=== PATIENT | female | born 1985 | race Caucasian/White ===

== ENCOUNTER → 2016-11-11 | Outpatient (CLI) | payer OTHER ==
[~2016-11-11] MED LIST: PRENTAB26 PO
[2016-11-11 11:50] LABS: URINE APPEARANCE CLEAR (CLEAR); URINE BILIRUBIN NEG (NEG); URINE COLOR YELLOW; URINE EPITHELIAL CELL AUTO 20-30 /lpf (0-5); URINE NITRITE NEG (NEG); URINE PH 7.5 (4.5-7.5); URINE SPECIFIC GRAVITY 1.007 (1.000-1.030); UROBILINOGEN NEG (NEG)
[2016-11-11 11:56] LABS: MANUAL MICROSCOPIC REQUIRED? NO; REVIEW REQ? NO
== END | disposition home or self-care (01) ==
LOC: C.LABSPEC 11:21
PROVIDERS: ATTEND Obstetrics & Gynecology
DX: Z34.90 Encounter for supervision of normal pregnancy, unspecified, unspecified trimester (principal)

== ENCOUNTER → 2016-11-17 | Outpatient (CLI) | payer OTHER ==
[2016-11-17 11:14] LABS: BASO % 0.3 %; BASO ABS # 0.02 K/uL (0-0.2); COMPLETE YES; EOS % 0.6 %; HEMATOCRIT 37.5 % (37-47); IG% 0.3 %; LYMPH % 22.7 %; LYMPH ABS # 1.41 K/uL (1.2-3.4); MEAN CELL VOLUME 90.8 fL (80-100); MEAN CORPUSCULAR HGB CONC 35.2 g/dl (32-36); MEAN PLATELET VOLUME 11.1 fL (7.4-10.4); MONO % 4.5 %; NEUT % 71.6 %; PLATELET COUNT 183 K/uL (130-400); RED BLOOD COUNT 4.13 M/uL (4.2-5.4); WHITE BLOOD COUNT 6.22 K/uL (4.8-10.8)
[2016-11-18 21:15] LABS: CHLAMYDIA TRACH RNA*** NOT DETECTED (NOT DETECTED); GC (NEIS GONORRHOEAE)RNA** NOT DETECTED (NOT DETECTED)
== END | disposition home or self-care (01) ==
LOC: C.LAB1850 09:46
PROVIDERS: ATTEND Obstetrics & Gynecology
DX: Z34.90 Encounter for supervision of normal pregnancy, unspecified, unspecified trimester (principal)

== ENCOUNTER → 2017-01-08 | Outpatient (CLI) | payer OTHER ==
[~2017-01-08] MED LIST changes: +RANITAB6 PO
[2017-01-08 14:38] LABS: GTGD 50 Grams
[2017-01-11 16:01] LABS: AFP CONCENTRATION 49.1 NG/ML; AFP MULTIPLE OF MEDIAN 1.69; AFPTS GESTATIONAL AGE 16.3 WEEKS; AFPTS INSULIN DEP DIABETIC? NO; AFPTS MATERNAL WT 188 LBS; ALPHA-FETOPROTEIN RACE CAUCASIAN=W; ESTRIOL MULTIPLE OF MEDIAN 1.16; HISTORY OF NTD NO; INHIBIN A 139 PG/ML; INHIBIN A MOM 0.92; REPEAT SAMPLE? NO; hCG MULTIPLE OF MEDIAN 1.79
== END | disposition home or self-care (01) ==
LOC: C.LAB1850 11:04
PROVIDERS: ATTEND Obstetrics & Gynecology
DX: Z34.82 Encounter for supervision of other normal pregnancy, second trimester (principal)

== ENCOUNTER → 2017-03-30 | Outpatient (CLI) | payer OTHER ==
[~2017-03-30] MED LIST changes: -RANITAB6 PO
[2017-03-30 12:19] LABS: HEMATOCRIT 33.8 % (37-47)
[2017-03-30 12:45] LABS: GTGD 50 Grams
[2017-03-30 12:55] LABS: URINE APPEARANCE CLEAR (CLEAR); URINE BILIRUBIN NEG (NEG); URINE COLOR YELLOW; URINE EPITHELIAL CELL AUTO >30 /lpf (0-5); URINE NITRITE NEG (NEG); URINE PH 7.5 (4.5-7.5); URINE SPECIFIC GRAVITY 1.013 (1.000-1.030); UROBILINOGEN NEG (NEG)
[2017-03-30 13:01] LABS: MANUAL MICROSCOPIC REQUIRED? NO; REVIEW REQ? NO
== END | disposition home or self-care (01) ==
LOC: C.LAB1850 09:29
PROVIDERS: ATTEND Obstetrics & Gynecology
DX: Z34.82 Encounter for supervision of other normal pregnancy, second trimester (principal)

== ENCOUNTER → 2017-04-10 | Outpatient (CLI) | payer OTHER | END | disposition home or self-care (01) | LOC: C.LAB 08:05 | PROVIDERS: ATTEND Obstetrics & Gynecology | DX: O28.9 Unspecified abnormal findings on antenatal screening of mother (principal); Z3A.00 Weeks of gestation of pregnancy not specified ==

== ENCOUNTER → 2017-05-26 | Outpatient (CLI) | payer OTHER | END | disposition home or self-care (01) | LOC: C.LABSPEC 17:48 | PROVIDERS: ATTEND Obstetrics & Gynecology | DX: Z34.83 Encounter for supervision of other normal pregnancy, third trimester (principal) ==

== ENCOUNTER 2017-06-17 17:27 | Inpatient (IN) | payer OTHER ==
[~2017-06-17] VITALS: Ht 170.2 cm; Wt 187.0 kg
[2017-06-17] MEDS ORDERED: LACTATED RINGER'S 1000ML 1,000 ML IV PRN (18:15)
[2017-06-17] MEDS ORDERED: OXYTOCIN 30 UNITS/500ML NSS IV PRN ×2 (18:15→23:45)
[2017-06-17] MEDS ORDERED: LACTATED RINGER'S 1000ML 500 ML IV PRN ×2 (18:15→21:14)
[2017-06-17] MEDS ORDERED: PENICILLIN G POTASSIUM IV 3 MU in DEXTROSE 5% 100ML 100 ML IV PRN (18:15)
[2017-06-17] MEDS ORDERED: PENICILLIN G POTASSIUM IV 6 MU in DEXTROSE 5% 250ML 250 ML IV ONE (18:30)
[2017-06-17] MEDS: LACTATED RINGER'S 1000ML 1,000 ML IV SCH ×2 (18:35→20:32)
[2017-06-17 19:13] LABS: HEMATOCRIT 34.6 % (37-47); MEAN CELL VOLUME 95.6 fL (80-100); MEAN CORPUSCULAR HGB CONC 35.5 g/dl (32-36); MEAN PLATELET VOLUME 12.6 fL (7.4-10.4); PLATELET COUNT 128 K/uL (130-400); PLT ESTIMATE DECREASED; RED BLOOD COUNT 3.62 M/uL (4.2-5.4); WHITE BLOOD COUNT 11.06 K/uL (4.8-10.8)
[2017-06-17 19:24] VITALS: Ht 170.2 cm; Wt 187.0 kg
[2017-06-17] MEDS ORDERED: RANITIDINE HCL 150 MG TAB PO PRN (19:30)
[2017-06-17] MEDS ORDERED: CALCIUM CARBONATE 500 MG CHEWABLE PO PRN (19:30)
[2017-06-17] MEDS ORDERED: BUPIVACAINE 0.25% 30 ML VIAL ONE (19:37)
[2017-06-17] MEDS ORDERED: FENTANYL 2MCG/ML ROPIV 1.25MG/ML 100ML BAG EPI ONE (19:37)
[2017-06-17] MEDS ORDERED: EpHEDrine SULFATE INJ 50 MG/ML AMP ONE (19:37)
[2017-06-17] MEDS ORDERED: FENTANYL CITRATE INJ 50 MCG/1 ML 2 ML VIAL ONE (19:38)
[2017-06-17] MEDS ORDERED: RANITAB6 PO (21:07)
[2017-06-17] MEDS ORDERED: NALOXONE HCL INJ 1 MG in SODIUM CHLORIDE 0.9% 1000ML 1,000 ML IV PRN (21:14)
[2017-06-17] MEDS ORDERED: EpHEDrine SULFATE INJ 50 MG/ML AMP IV PRN (21:15)
[2017-06-17] MEDS ORDERED: NALBUPHINE HCL INJ 10 MG/ML AMP IV PRN (21:15)
[2017-06-17] MEDS ORDERED: FENTANYL 2MCG/ML ROPIV 1.25MG/ML 100ML BAG EPI PRN (21:15)
[2017-06-17] MEDS ORDERED: DiphenhydrAMINE HCL 50 MG/ML VIAL IV PRN (21:15)
[2017-06-17] MEDS ORDERED: ONDANSETRON INJ 2 MG/ML 2 ML VIAL IV PRN (21:15)
[2017-06-17] MEDS ORDERED: NALOXONE HCL INJ 0.4 MG/1 ML VIAL/CARP IV PRN (21:15)
[2017-06-17] MEDS ORDERED: LACTATED RINGER'S 1000ML 1,000 ML IV SCH (23:34)
[2017-06-17] MEDS ORDERED: HYDROCORTISONE ACETATE 25 MG SUPP PR PRN (23:45)
[2017-06-17] MEDS ORDERED: LANOLIN OINT EXT PRN ×2 (23:45)
[2017-06-17] MEDS ORDERED: SUPERCREAM 0.870 % 15GM JAR EXT PRN (23:45)
[2017-06-17] MEDS ORDERED: BENZOCAINE 20% AER SPR 82.5 GM CAN EXT PRN (23:45)
[2017-06-17] MEDS ORDERED: DIPHTHERIA/TETANUS/PERTUSSIS 0.5 ML SYR/VIAL IM. ONE (23:45)
[2017-06-17] MEDS ORDERED: OXYCODONE/ACETAMINOPHEN 5-325 TAB PO PRN (23:45)
[2017-06-17] MEDS ORDERED: ACETAMINOPHEN 325 MG TAB PO PRN (23:45)
--- NOTE | 2017-06-18 00:17 | DELIVERY SUMMARY ---
DATE OF OPERATION: 06/17/2017 PREOPERATIVE DIAGNOSES: 1. [place]iken intrauterine at term. 2. Onset of labor. 3. Group B strep positive. POSTOPERATIVE DIAGNOSES: 1. [place]iken intrauterine at term. 2. Onset of labor. 3. Group B strep positive. 4. heart tones category 2 throughout much of her labor. PROCEDURE: Spontaneous vaginal delivery and repair of third-degree laceration. SURGEON: Harriett Maxwell MD. CONVEYOR FEEDER OFFBEARER: None. ESTIMATED BLOOD LOSS: 450. DISPOSITION: Stable in labor and delivery. DESCRIPTION OF PROCEDURE: Kyung is a 32-year-old para 1 who presented with a term . She was managed with an epidural for pain as well as artificial rupture of membranes for augmentation. She reached complete dilation and was coached through her second stage of labor. Of note, she was group B step positive and did get treated with penicillin throughout her labor. There was never a maternal fever, however, there was intermittent tachycardia with late decelerations. The patient pushed very well during her second stage and very rapidly brought the head of the baby to a very sudden delivery. The infant delivered with both of its hands alongside both of its cheeks and the umbilical cord actually grasped in the right hand. The head, hands, shoulders and upper arms delivered essentially all within the same moment. The reminder of the 's body delivered with no further maternal pushing efforts and was guided up on to the maternal abdomen where the cord was doubly clamped and cut. Very gentle traction was applied to the umbilical cord which immediately avulsed. The cervix, vagina and perineum where examined and found to have a full third-degree laceration including a complete separation of the anal sphincter. However, there was no rectal mucosal damage on a rectal exam. Once fresh gloves had been changed, repair proceeded by using 4 [id number] Vicryl 0 sutures to reapproximate the ends of the external anal sphincter. Gentle traction on the sutures was applied with a finger tip in the anal verge in order to ensure that traction was indeed being applied circumferentially indicating complete repair of the muscle. This was indeed found to be the case and once again gloves were changed. Repair then proceeded with a 2-0 Vicryl suture to close the posterior vagina, perineum and rebuild the perineal body in the usual manner. The patient and FOB were advised at that time of the third-degree laceration and of appropriate postop care including stool softeners and the avoidance of constipation. The fundus was firm, lochia was minimal and mom and baby were in good condition having tolerated delivery well at the time of this dictation. I attest to the content of the Intraoperative Record and any orders documented therein. Any exception s are noted below.
--- NOTE | 2017-06-18 00:18 | Anesthesia Procedure Note ---
Anesthesia Epidural Removal Nt Date & Time Jun 18, 2017 at 00:18 Vital Signs Pain Intensity: 7.0 Notes Mental Status: alert / awake / arousable, participated in evaluation Nausea / Vomiting: adequately controlled Pain: adequately controlled Airway Patency, RR, SpO2: stable & adequate BP & HR: stable & adequate Hydration State: stable & adequate Neuraxial Anesthesia: was administered, sensory block is resolving Anesthetic Complications: no major complications apparent, pt satisfied with anesthetic care Epidural: removed without complications, with tip intact
[2017-06-18] MEDS: IBUPROFEN 600 MG TAB PO PRN ×5 (01:47→20:06)
[2017-06-18 02:05] VITALS: BP 131/84; PULSE 101; TEMP 37.3; O2SAT 96
[2017-06-18] MEDS ORDERED: LIDOCAINE HCL 2% JELLY 30 ML TUBE EXT ONE (04:52)
[2017-06-18 06:36] LABS: HEMATOCRIT 27.5 % (37-47)
--- NOTE | 2017-06-18 06:57 | Progress Note ---
Subjective Jun 18, 2017. Subjective conversation w/ patient, physical exam, chart review, lab review Ambulation: limited ambulation (not out of bed yet) Voiding: requires PRN straight cath (early this am. no void yet) Passing Gas: No Diet Tolerance: Clear Liquids Lochia: Moderate Feeding Type: Bottle Feeding (wants to try breast feeding today) Pain: Says has pain/discomfort around sutures Comment: Found pt resting comfortably, says is doing well in this immediate post- period. Most discomfort around sutures, improved with PO meds. Denies any particular acute concerns. Review of Systems Constitutional: No fever, No chills Respiratory: No cough, No shortness of breath Cardiac: + edema, No chest pain Abdomen: No nausea, No vomiting, No diarrhea Female : No dysuria Objective Vital Signs Date Time Temp Pulse Resp B/P (MAP) Pulse Ox O2 Delivery O2 Flow Rate FiO2 06/18/17 02:05 Room Air 06/18/17 02:05 37.3 101 20 131/84 (100) 96 Room Air Physical Exam General Appearance: WELL-APPEARING, WD/WN, NO APPARENT DISTRESS Respiratory/Chest: lungs clear, normal breath sounds, no respiratory distress Cardiovascular: regular rate, rhythm, no murmur Abdomen: normal bowel sounds, non tender, soft Fundus: Firm, Tender (minimally), Relation to Umbilicus (at umbilicus) Extremities: normal range of motion, no calf tenderness, + pedal edema (2 plus bilaterally) Laboratory Results Last 24 Hours Test 06/17/17 18:25 06/18/17 06:06 White Blood Count 11.06 K/uL Red Blood Count 3.62 M/uL Hemoglobin 12.3 g/dL 9.7 g/dL Hematocrit 34.6 % 27.5 % Mean Corpuscular Volume 95.6 fL Mean Corpuscular Hemoglobin 34.0 pg Mean Corpuscular Hemoglobin Concent 35.5 g/dl RDW Standard Deviation 44.9 fL RDW Coefficient of Variation 12.9 % Platelet Count 128 K/uL Mean Platelet Volume 12.6 fL Platelet Estimate DECREASED Assessment and Plan Post- Day#: 1 Continue Routine Care: 32F s/p , now PPD #1 (delivered near midnight 19Oct). - Blood type A positive. GBS positive, s/p antibiotics pre-delivery. Rubella immune. - Vital signs reviewed and stable. - Pain controlled with tylenol, motrin, percocet. - Bilateral, symmetrical leg swelling but no tenderness on calf palpation. Encourage ambulation starting this AM. - Encourage breast feeding today. - Hemoglobin pre-delivery 12.3, post-delivery 9.7. Bleeding remains stable/ slowing. Continue to monitor clinically. - Continue routine post-vaginal delivery care. - Pt agreed with above plan, all current questions answered. Inderjit Betancur MD, PGY1 Outside Barrel Lathe Operator Physician Supervision Note: I interviewed and examined the patient. Discussed with Dr. Betancur and agree with findings and plan as documented in the note. Any exceptions or clarifications are listed here: [None] Documented By: Harriett Maxwell Resident Tracking Resident Involvement: Resident Care Provided Care Provided: OB Delivery (OB rounds)
[2017-06-18] MEDS: DOCUSATE SODIUM 100 MG CAP PO SCH ×2 (07:46→20:05)
[2017-06-18] MEDS: PRENATAL VITAMIN TAB PO SCH (07:46)
[2017-06-18 07:50] VITALS: BP 131/84; PULSE 88; TEMP 36.7
[2017-06-18 11:40] VITALS: BP 126/85; PULSE 85; TEMP 36.7
[2017-06-18 16:10] VITALS: BP 120/85; PULSE 97; TEMP 37; O2SAT 97
[2017-06-18 20:00] VITALS: BP 115/81; PULSE 102; TEMP 36.7; O2SAT 97
--- NOTE | 2017-06-18 22:09 | Discharge Instructions ---
Discharge Instructions Date of Service Jun 18, 2017. Admission Reason for Admission: Normal Labor And Delivery Discharge Discharge Diagnosis / Problem: s/p vaginal delivery Discharge Goals Goal(s): Routine recovery after delivery Medications Continue Dispensed Medications: supercream, dermaplast, tucks, lansinoh Activity Recommendations Activity Limitations: per Instructions/Follow-up section . Instructions / Follow-Up Instructions / Follow-Up ACTIVITY RECOMMENDATIONS: * Gradual return to full activity over the next 2-3 weeks. * No lifting - nothing heavier than baby over the next 2-3 weeks. * Do not engage in vigorous exercise, sexual activity or sports until cleared by your physician. * Do not drive or operate any motorized equipment until cleared by your physician. * You may shower/bathe daily. MEDICATIONS: For discomfort or pain, you may use Acetaminophen (Tylenol), Ibuprofen (Advil), or Naproxen (Aleve) following the package directions. For constipation you may use Colace following the package directions. BREAST CARE: If you are not breast feeding: * Wear a supportive bra 24 hours a day for one to two weeks. * Avoid stimulating your breasts and nipples as much as possible during the first few weeks after delivery. * When taking a shower, have the warm water hit your back, not breasts. * When your breasts feel full, apply ice packs. Usually three to four times a day helps ease the discomfort. * Take a mild pain medication (Tylenol / Motrin) when you are uncomfortable. If breast feeding: * Use breast milk to lubricate nipples. Lansinoh cream may be used for sore nipples. You do not need to remove cream prior to breast feeding. If using a different brand of cream, check the label for directions regarding removal of cream prior to nursing. * Wear a supportive bra. * If having problems with breasts or breast feeding, call a storage consultant or your health care provider. EPISIOTOMY CARE: After delivery, if you have an episiotomy (stitches), the following steps will ease discomfort and aid healing. * For the first 24 hours after delivery, place ice packs next to your episiotomy to help reduce swelling. * After the first 24 hour-period, sitz baths, either portable or in the tub, are suggested. A shower with a shower arm sprayed over the episiotomy may be comforting. * Cass care should be done after each voiding and bowel movement. Squirt warm water from a plastic bottle over the perineum (region of the body between the anus and urinary opening) and pat dry. * Use Dermoplast to ease discomfort. Shake container. [place] directly over the episiotomy. Place a Tucks on a clean sanitary pad next to your episiotomy. SPECIAL CARE INSTRUCTIONS: When you are discharged from the hospital, it is important for you to follow the instructions listed below: * During the first week at home, you should be able to care for yourself and your baby. In addition, the usual light household activities are encouraged. * Limit your activities to the way you feel. Do not try to clean the house or move furniture. Be sensible. * If you actively engage in sports and have done so up until the time of your delivery, you may resume these activities as soon as you feel able. This may take up to one month or even longer. Use good judgment. * Continue to take your vitamins for at least six weeks after the of your baby. * Your diet need not be limited unless you were on a special diet before your delivery. Breast-feeding mothers need around 2500 calories per day and at least 64-80 ounces of fluid per day (8 to 10 glasses). * You should eat foods from the four major food groups. Crash diets or fad diets are to be avoided. Eating lean meats, fresh fruits and vegetables, low-fat dairy products, high fiber foods and a regular exercise program, will help you get back to your pre- weight without putting your health at risk. * Constipation is sometimes a problem after delivery. Take a mild laxative as needed. If breast feeding, Milk of Magnesia is acceptable to use. You may use a suppository or Fleets enema if no episiotomy. * A daily shower or tub bath is suggested. Be sure to thoroughly and gently dry the perineum. * A bloody vaginal discharge will usually continue until around four weeks post . A small amount of bleeding may continue for as long as six weeks. Vaginal discharge changes from the bright red bleeding after delivery to pink then brownish and finally yellowish-pink before becoming white and disappearing. * Bleeding may increase with activity. Your first period may come in 4-8 weeks. If you are breast feeding, your period may be delayed even longer. * [place] (sex) can begin whenever both you and your partner feel comfortable and do not have any form of genital infection. It is recommended that you wait at least six weeks for internal and external healing to occur. If you have questions, please talk to your health care practitioner. A condom should be used to prevent infection and . * Foreplay, gentle intercourse and lubrication is very important the first several times to prevent pain. A water-based lubricant such as K-Y jelly or Astroglide may be used. * If you have RH negative blood and your baby is RH positive, you will receive RHOGAM by injection prior to discharge. The nurse will give you a card to keep with you that has the date and place that you received RHOGAM after delivery. * During your care, you had a Rubella screen done to check for the presence of rubella antibodies in your blood. If your test was negative, you will receive a Rubella vaccine prior to discharge. This vaccine may cause a fever, soreness at the injection site and flu-like symptoms. If these symptoms persist, notify your health care practitioner. is not advised for one month after a Rubella vaccine. * Verbalizes understanding of car seat law as reviewed with patient nursing. * Car Seat hand-out given and reviewed with patient by nursing. * Shaken baby information reviewed with patient by nursing. Call you doctor if: * Heavy bleeding (saturating several pads an hour) or passing clots the size of your fist. * A fever >101 degrees F (38.3 degrees C) on two occasions four hours apart and /or chills. * Unusual pain in the pelvic or vaginal areas. * "Baby Blues" lasting longer than two weeks. If you have any questions or concerns, call your health care practitioner at . FOLLOW UP VISIT: * Please call the office at to schedule a 6 week examination. It is important you keep this appointment. It is important for you to make arrangements for either yearly or twice yearly check-ups thereafter. Current Hospital Diet Patient's current hospital diet: Regular OB Diet Discharge Diet Recommended Diet: Regular Diet Pending Studies Studies pending at discharge: no Medical Emergencies . Who to Call and When: Medical Emergencies: If at any time you feel your situation is an emergency, please call 911 immediately. . Non-Emergent Contact Non-Emergency issues call your: Fire Protection Designer . . "Provider Documentation" section prepared by Adelia Nicole. . VTE Core Measure Inpt VTE Proph given/why not?: Treatment not indicated
[2017-06-19 01:30] VITALS: BP 109/68; PULSE 74; TEMP 36.4
[2017-06-19] MEDS: IBUPROFEN 600 MG TAB PO PRN ×3 (01:41→14:18)
[2017-06-19 07:07] VITALS: BP 130/82; PULSE 80; TEMP 36.8; O2SAT 100
--- NOTE | 2017-06-19 07:35 | Progress Note ---
Subjective Jun 19, 2017. Subjective conversation w/ patient, physical exam, chart review, lab review Ambulation: ambulating normally Voiding: no voiding problems Passing Gas: Yes Diet Tolerance: Regular Diet Lochia: Small Feeding Type: Bottle Feeding Pain: Still discomfort at sutures Comment: Found pt sitting up in bed, says pain is controlled and swelling in legs has improved, denies any acute concerns. Review of Systems Constitutional: No fever, No chills Respiratory: No cough, No shortness of breath Cardiac: + edema, No chest pain Abdomen: No nausea, No vomiting, No diarrhea Female : No dysuria Objective Vital Signs Date Time Temp Pulse Resp B/P (MAP) Pulse Ox O2 Delivery O2 Flow Rate FiO2 06/19/17 01:30 Room Air 06/19/17 01:30 36.4 74 18 109/68 (82) Room Air 06/18/17 20:00 36.7 102 20 115/81 (92) 97 Room Air 06/18/17 16:10 Room Air 06/18/17 16:10 37.0 97 18 120/85 (97) 97 Room Air 06/18/17 11:40 36.7 85 16 126/85 (99) Room Air 06/18/17 07:50 Room Air 06/18/17 07:50 36.7 88 16 131/84 (100) Room Air Physical Exam General Appearance: WELL-APPEARING, WD/WN, NO APPARENT DISTRESS Respiratory/Chest: lungs clear, normal breath sounds, no respiratory distress Cardiovascular: regular rate, rhythm, no murmur Abdomen: normal bowel sounds, non tender, soft Fundus: Firm, Tender (mild), Relation to Umbilicus (at umbilicus) Extremities: normal range of motion, no calf tenderness, + pedal edema (1+ bilaterally) Assessment and Plan Post- Day#: 2 Continue Routine Care: 32F s/p , now PPD #2. - Blood type A positive. GBS positive, s/p antibiotics pre-delivery. Rubella immune. - Vital signs reviewed and stable. - Pain controlled with motrin and percocet. - Improved bilateral, symmetrical leg swelling and still no tenderness on calf palpation. Encourage ambulation. - Pt is bottle feeding. Provided breast care instructions. - Hemoglobin pre-delivery 12.3, post-delivery 9.7. Bleeding improving. Continue to monitor clinically. - Continue routine post-vaginal delivery care. Reviewed discharge precautions with patient. - Pt agreed with above plan, all current questions answered. Inderjit Betancur MD, PGY1 Director Of Search Engine Marketing Physician Supervision Note: I interviewed and examined the patient. Discussed with Dr. Betancur and agree with findings and plan as documented in the note. Any exceptions or clarifications are listed here: Agree. Can go home if baby d/c today. Documented By: Adelia Nicole Resident Tracking Resident Involvement: Resident Care Provided Care Provided: OB Delivery (OB rounds)
[2017-06-19] MEDS: PRENATAL VITAMIN TAB PO SCH (08:11)
[2017-06-19] MEDS: DOCUSATE SODIUM 100 MG CAP PO SCH (08:11)
[2017-06-19 14:50] VITALS: BP_DIAS 82; PULSE 80; TEMP 36.8
== END 2017-06-19 14:50 | disposition home or self-care (01) | DRG 775 ==
LOC: C.LD 17:27 → C.OPB 17:27 → C.LD 18:16 → C.OPB 18:16 → C.OBG 06-18 02:07
PROVIDERS: ADMIT Obstetrics & Gynecology; ATTEND Obstetrics & Gynecology
PROC: 0DQR0ZZ Repair Anal Sphincter, Open Approach (ICD-10-PCS; principal; 2017-06-17)
PROC: 10E0XZZ Delivery of Products of Conception, External Approach (ICD-10-PCS; principal; 2017-06-17)
DX: O99.824 Streptococcus B carrier state complicating childbirth (principal); O70.20 Third degree perineal laceration during delivery, unspecified; Z37.0 Single live birth; Z3A.39 39 weeks gestation of pregnancy

== ENCOUNTER → 2017-07-30 | Outpatient (CLI) | payer OTHER ==
[~2017-07-30] MED LIST changes: +RANITAB6 PO
== END | disposition home or self-care (01) ==
LOC: C.PAPS 14:14
PROVIDERS: ATTEND Obstetrics & Gynecology
DX: Z12.4 Encounter for screening for malignant neoplasm of cervix (principal)